=== PATIENT | female | born 1960 | race Caucasian/White ===

== ENCOUNTER → 2022-10-10 11:41 | Outpatient (CLI) | payer OTHER, SELFPAY ==
--- NOTE | ~2022-10-10 | MM_ITS ---
EXAMINATION: MM screening victor manuel BI w haylie HISTORY: Screening TECHNIQUE: Craniocaudal and mediolateral oblique 3-D tomosynthesis images were obtained and synthetic 2-D images were generated. CAD analysis was submitted and interpreted. COMPARISON: 03/13/2012 BREAST PARENCHYMAL COMPOSITION: Breast composed of scattered areas of fibroglandular density FINDINGS: There are new bilateral breast asymmetries medially in both breasts posterior third. No cor responding abnormality is seen on MLO views. There are no suspicious calcifications or skin thickenin g. IMPRESSION: 1. New bilateral breast asymmetries located medially and posteriorly in both breasts. 2. Additional mammographic views and possible breast ultrasound are recommended. BI-RADS Category 0: Incomplete: Needs additional imaging evaluation. Reviewed, dictated and finalized at location A. DIGESTIVE IMPRESSION: 1. New bilateral breast asymmetries located medially and posteriorly in both br easts. 2. Additional mammographic views and possible breast ultrasound are recommended . BI-RADS Category 0: Incomplete: Needs additional imaging evaluation.
== END ==
PROVIDERS: PCP Internal Medicine; Visit Provider Obstetrics & Gynecology Gynecology
DX: Z12.31 Encounter for screening mammogram for malignant neoplasm of breast (principal); R92.8 Other abnormal and inconclusive findings on diagnostic imaging of breast
CPT/HCPCS: 77063; 77067

== ENCOUNTER 2022-11-04 13:44 | Outpatient (CLI) | payer OTHER, SELFPAY ==
--- NOTE | ~2022-11-04 | MMUS_ITS ---
EXAMINATION: MM diagnostic victor manuel BI w haylie, US breast BI limited HISTORY: Follow-up bilateral breast asymmetries TECHNIQUE: Additional 3-D tomosynthesis images of the breasts were performed and synthetic 2-D images were generated. CAD analysis was submitted and interpreted. High resolution limited bilateral breast ultrasound was performed. COMPARISON: Comparison to multiple prior studies sequentially, with oldest reviewed study dated 07/18. BREAST PARENCHYMAL COMPOSITION: Breast composed of scattered areas of fibroglandular density FINDINGS: MAMMOGRAPHIC FINDINGS: There are no suspicious masses, calcifications or architectural distortion in either breast to sugges t malignancy. ULTRASOUND: Limited bilateral breast ultrasound of the medial half of both breasts: Normal heterogeneous echotext ure without focal solid or cystic mass. IMPRESSION: 1. No evidence for malignancy in either breast. 2. Routine yearly screening mammogram and regular clinical breast examination are recommended. BI-RADS Category 1: Negative Reviewed, dictated and finalized at location B. F CONCIERGE IMPRESSION: 1. No evidence for malignancy in either breast. 2. Routine yearly screening mammogram and regular clinical breast examination a re recommended. BI-RADS Category 1: Negative
== END 2022-11-04 13:45 | disposition home or self-care (01) ==
PROVIDERS: PCP Internal Medicine; Visit Provider Internal Medicine
DX: R92.8 Other abnormal and inconclusive findings on diagnostic imaging of breast (principal)
CPT/HCPCS: 76642; 77062; 77066; G0279

== ENCOUNTER 2024-05-05 07:53 | Outpatient (CLI) | payer BC, SELFPAY ==
--- NOTE | ~2024-05-05 | MM_ITS ---
EXAMINATION: MM screening victor manuel BI w haylie HISTORY: Screening TECHNIQUE: Craniocaudal and mediolateral oblique 3-D tomosynthesis images were obtained and synthetic 2-D images were generated. CAD analysis was submitted and interpreted. COMPARISON: Comparison to multiple prior studies sequentially, with oldest reviewed study dated 07/18. BREAST PARENCHYMAL COMPOSITION: Not dense: There are scattered areas of fibroglandular density. FINDINGS: There is no evidence of suspicious mass, calcification, or architectural distortion to sugg est malignancy in either breast. There has been no suspicious interval change. IMPRESSION: 1. No mammographic evidence of malignancy. 2. Recommend routine screening mammography in one year. BI-RADS Category 1: Negative Reviewed, dictated and finalized at location B.
--- NOTE | ~2024-05-05 | DEXA_ITS ---
Bone Density Report Name: EMMANUEL BULLARD Age: 63 Sex: Female Ethnicity: White Date of : 1960 Indication: postmenopausal; screening for osteoporosis; parental hip fracture; history of glucocorticoids; cancer; Referring Provider: CARLOS BEYER Study: Bone densitometry was performed. Exam Date: May 05, 2024 Accession number: [id number] Bone Density: Region BMD T-score Z-score Classification AP Spine(L1-L4) 0.906 -1.3 0.3 Osteopenia Femoral Neck (Left) 0.674 -1.6 -0.2 Osteopenia Total Hip (Left) 0.791 -1.2 -0.1 Osteopenia Femoral Neck (Right) 0.607 -2.2 -0.8 Osteopenia Total Hip (Right) 0.803 -1.1 0.0 Osteopenia Total Hip Mean 0.797 -1.2 -0.1 Osteopenia World Health Organization criteria for BMD impression classify patients as: Normal (T-score at or above -1.0), Osteopenia (T-score between -1.0 and -2.5), or Osteoporosis (T-score at or below -2.5). 10-year Fracture Risk(1): Major Osteoporotic Fracture 29% Hip Fracture 3.0% Reported Risk Factors: [place] (), Neck BMD=0.607, BMI=22.0, parental fracture, glucocorticoids (1) FRAX(R) Version 3.08. Fracture probability calculated for an untreated patient. Fracture probability may be lower if the patient has received treatment. Clinical Information Provided by Patient: Parent has had a hip fracture Has taken Glucocorticoids Has used the following medications: Vitamin D Has the following medical conditions: Cancer Patient maximum height was 65 Menopause Age: 50 Onset of menses at age 14 Number of children 1 Impression: The patient has low bone mass, based on the Right Femoral Neck T-score. The patient has an estimated ten-year risk of hip fracture of 3% and an estimated ten-year risk of major fracture of 29%, based on the WHO FRAX algorithm. The patient has risk factors, including: parental hip fracture, history of glucocorticoid therapy. Discussion: BONE DENSITY IS LOW AT ONE OR MORE SKELETAL SITES. THE PATIENT'S BMD AND CLINICAL RISK FACTORS CONTRIBUTE TO THIS PATIENT'S HIGH RISK OF FRACTURE. This patient's lowest T-score is low at one or more skeletal sites. It meets the World Health Organization's (WHO) criteria for ?low bone mass? (T-score between -1.0 and -2.5). The patient's 10-year risk of hip fracture and 10 year risk of a major osteoporotic fracture as calculated by FRAX exceeds the threshold where pharmacological therapy is recommended by the National Osteoporosis Foundation (NOF). However, all treatment decisions require clinical judgment and consideration of individual patient factors, including patient preferences, comorbidities, previous drug use, risk factors not captured in the FRAX model (e.g., frailty, falls, vitamin D deficiency, increased bone turnover, interval significant decline in bone densi
== END 2024-05-05 07:54 | disposition home or self-care (01) ==
PROVIDERS: PCP Internal Medicine; Visit Provider Obstetrics & Gynecology Gynecology
DX: Z12.31 Encounter for screening mammogram for malignant neoplasm of breast (principal); Z78.0 Asymptomatic menopausal state; M85.88 Other specified disorders of bone density and structure, other site; M85.852 Other specified disorders of bone density and structure, left thigh; M85.851 Other specified disorders of bone density and structure, right thigh
CPT/HCPCS: 77063; 77067; 77080

== ENCOUNTER 2025-06-09 10:04 | Outpatient (CLI) | payer BC, SELFPAY ==
--- NOTE | ~2025-06-09 | MM_ITS ---
EXAMINATION: MM screening victor manuel BI w haylie HISTORY: Screening TECHNIQUE: Craniocaudal and mediolateral oblique 3-D tomosynthesis images were obtained and synthetic 2-D images were generated. CAD analysis was submitted and interpreted. COMPARISON: Comparison to multiple prior studies sequentially, with oldest reviewed study dated 09/24. BREAST PARENCHYMAL COMPOSITION: Not Dense: The breasts are almost entirely fatty. FINDINGS: There is a new mass in the right breast, posterior third at approximately 9:00 position. Th e left breast is stable without evidence for malignancy. IMPRESSION: 1. New right breast mass at 9:00, posterior third. 2. Additional mammographic views and possible breast ultrasound are recommended. BI-RADS Category 0: Incomplete: Needs additional imaging evaluation. Reviewed, dictated and finalized at location B. IMPRESSION: 1. New right breast mass at 9:00, posterior third. 2. Additional mammographic views and possible breast ultrasound are recommended . BI-RADS Category 0: Incomplete: Needs additional imaging evaluation.
--- OUTSIDE RECORDS SUMMARY | 2025-06-09 10:10 | XMS_ITS | Continuity of Care Document ---
Author Organization [facility] Address [address] [place] [address] [place] [address] Phone Care Team Providers Care Simplex Operator Name Role Phone Jerrod Blake MD, FACS Unavailable Unavailab le Allergies, Adverse Reactions, Alerts Substance Reaction Status Criticality codeine Active No Information POTASSIUM CLAVULANATE Active No Inf ormation AMOXICILLIN TRIHYDRATE Active No In formation Procedures Procedure Date Office/outpatient Visit, [facility] Advance Directives Directive Yes / No Effective Date File Name Resuscitation Not Answered N/A N/A Life Support Not Answered N/A N/A Intubation Not Answered N/A N/A Antibiotics Not Answered N/A N/A IV Fluid Support Not Answered N/A N/A Tube Feed Not Answered N/A N/A Other Directive N/A N/A WARNING:The information contained in this section is historical and is provided for information only and does not constitute a legal document or any assurance that the information is still accurate. Please verify the information with the crooks of the legal document before using it for clinical purposes. Encounters Encounter Description Practice Location Reason(s) For Visit Diagnoses Date Provider Providers Copied on Encounter Office/outpa tient Visit, [facility], [id number] [place] [address] [address], [place], [place], [id number], [place] tel:[phone] JOSS CASPER Professional [facility] [address], [address], [place], [place], [id number], [place]. tel:[phone] Referring Provider: Lydia Guzman, [facility] [address], [address]. tel:[phone] Family History Family Member Type Diagnosis Age At Onset Father Problem (finding) diabetes alba mariee in first degree relative Father Problem (finding) glaucoma Payers Payer name Insurance type Covered constitution party ID [place] turpin(s) [place] [id number] Social History Type Description Quantity Date Captured Comments Alcohol Use Details No Caffeine Use Details No Tobacco Use Status No Information Smoking Status No Information Sex Female Chief Complaint And Reason For Visit No Information Reason For Referral Reason For Referral No Information History Of Present Illness Encounter Date Complaint History Of Prese nt Illness No Information Functional Status Date Functional Assessmen t No Information Instructions Date Instruction Additional Infor jeferson - PRN Related to [facility] CON[facility], OS - 1mm LLL - vision not affected - will continue to monitor - Discussed dx in detail. Sx option removing scar tissue, Steroid injection, or letting it resolve on its own. Pt elects to wait for sx. Gave pt sample of lotemax to use after warm compress and massage. Letter dictated to Dr. Rodriguez. Pt to return if granuloma enlarges. Related to [facility] Assessments Type Assessment Date No Information Patient Care Teams Name Effective Dates (start - stop) Status Members No Information
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
--- OUTSIDE RECORDS SUMMARY | 2025-06-09 10:10 | XMS_ITS | Referral Summary ---
Author Organization [facility] Address [address] [place] [address] Care Team Providers Care Retail Aide Name Role Phone Bal Christopher MD Primary Care Provider Encounters Date Type Department Care Team Description 06/07/2025 11:00 AM CDT Office Visit [address] [place] [address] Sanjuana Linda NP Basal cell carcinoma (BCC) of forehead (Primary Dx) 04/28/2025 Results Follow-Up [facility] Primary Care at [address] [place] [address] Bal Christopher MD Lipid panel, Comprehensive metabolic panel, eGFR 04/28/2025 10:35 AM CDT Lab [facility] [address] [place] [address] Examination 04/15/2025 Orders Only [facility] Primary Care at [address] [place] [address] Bal Christopher MD Examination (Primary Dx) 04/14/2025 2:30 PM CDT Office Visit [facility] Primary Care at [address] [place] [address] Bal Christopher MD Annual physical exam (Primary Dx); BMI 23.0-23.9, adult; Celiac disease from Last 3 Months Allergies Active Allergy Reactions Criticality Noted Date [...] 10/15/2019 Assessment & Plan (12/08/2018 3:49 PM RADIATOR TESTER): Avoid water to right ear Avoid very acidic or spicy foods and fluids for the next few days Increase caffeine free and soda free fluid daily For prevention, water-pik or warm salt water gargles after meals and before bedtime Right ear pain 12/08/2018 10/15/2019 Assessment & Plan (12/08/2018 3:50 PM RADIATOR TESTER): Avoid water to right ear Tonsillolith 12/04/2018 10/15/2019 Assessment & Plan (12/08/2018 3:50 PM RADIATOR TESTER): For prevention, water-pik or warm salt water gargles after meals and before bedtime Assessment & Plan (12/04/2018 12:08 PM RADIATOR TESTER): Called over to ENTs office, and they [...] back here in the office as scheduled. Immunizations Immunization Administration Dates Next Due Influenza, Split 07/31/2012 Influenza, Unspecified 04/14/2025(Deferr ed: Patient Refused),02/20/2024(Deferred: Patient Refused),04/04/2023(Deferred: Patient Refused),08/24/2021(Deferred: Patient Refused),08/24/2020(Deferred: Patient Refused),10/15/2019(Deferred: Patient Refused),08/24/2019(Deferred: Patient Refused),08/24/2018(Deferred: Patient Refused) Pfizer SARS-CoV-2 Monovalent Vaccination (12+ Yrs) PURPLE 05/14/2021 Tdap 07/31/2012 Social History Tobacco Use Types Packs/Day Years [...] on file Legal Sex Female 10:47 AM RADIATOR TESTER Gender Identity Female 10/15/2022 12:04 PM RADIATOR TESTER Sexual Orientation Straight 09/05/2024 2: 56 PM CDT Last Filed Vital Signs Vital Sign Reading [...] 04/14/2025 2:15 PM CDT Plan of Treatment Not on file Procedures Procedure Name Priority Date/Time Associated Diagnosis [...] was last reviewed 2021. Testing performed by: [facility], [address] [place] [address]., [address] Blood 04/28/2025 10:3 5 AM CDT 04/28/2025 2:10 PM CDT Bal Christopher MD LAB BLOOD ORDERABLES Fi nal Result HIRA LACKEY ([place]OS[place]) [address] [facility] [place] [address] * (ABNORMAL) Lipid panel (04/28/2025 10:35 AM [...] last revised on 2018. Testing performed by: [facility], [address] [place] [address]., [address] Triglycerides 68 <=149 mg/dL HIRA LACKEY (JOSY) [...] last revised on 2018. Testing performed by: [facility], [address] [place] [address]., [address] HDL 88 >=40 mg/dL HIRA LACKEY ([place]OSY) [...] last revised on 2018. Testing performed by: [facility], [address] [place] [address]., [address] LDL, calculated 113 <=129 mg/dL HIRA LACKEY [...] Stuart et al. CHEO Cardiol. 2020 March 24;5(5):540549. doi: 10.1001/jamacardio.2020.0013 Current Interpretive Data was last revised on 2024. Testing performed by: [address] [address] Non-HDL Cholesterol 125 mg/dL HIRA LACKEY ([place]OSY) [...] last revised on 2018. Testing performed by: [address] [address] Chol/HDL ratio 2 WILLIAM LACKEY ([place]OSY) Comment:Testing performed by : [address] [address] Blood 04/28/2025 10:3 5 AM CDT 04/28/2025 2:02 PM CDT us Bal Christopher MD LAB BLOOD ORDERABLES Fi nal Result HIRA LACKEY ([place]) [address] [facility] [place] [address] * Comprehensive metabolic panel (04/28/2025 10:35 AM CDT) Sodium 138 135 - 145 mmol/L Comment:Testing performed by : [address] [address] Potassium, pl 4.2 3.3 - 4.9 mmol/L HIRA LACKEY ([place]OSY) Comment:Testing performed by : [address] [address] Chloride 103 97 - 110 mmol/L HIRA LACKEY ([place]OSY) Comment:Testing performed by : [facility], [address] [place] [address]., [address] CO2 28 22 - 32 mmol/L [facility] ([place]) Comment:Testing performed by : [address] [address] Anion gap 7 2 - 15 mmol/L [facility] ([place]) Comment:Testing performed by : [address] [address] BUN 19 6 - 25 mg/dL [facility] ([place]) Comment:Testing performed by : [facility], [address] [place] [address], [address] Creatinine 0.76 0.60 - 1.10 mg/dL [facility] ([place]Y) Comment:Testing performed by : [address], [address] Glucose 95 70 - 199 mg/dL CERNER [...] classification and Diagnosis of Diabetes Diabetes Care 2021; 46: S19-S40. Current interpretive data was last revised 2022. Testing performed by: [facility], [address] [place] [address]., [address] Calcium 9.5 8.5 - 10.3 mg/dL [facility] ([place]) Comment:Testing performed by : [address] [address] Bilirubin, total 0.5 0.1 - 1.2 mg/dL [facility] ([place]) Comment:Testing performed by : [address] [address] Protein, pl 7.2 6.5 - 8.5 g/dL [facility] ([place]) Comment:Testing performed by : [address], [address] Albumin 4.5 3.5 - 5.0 g/dL [facility] ([place]) Comment:Testing performed by : [facility], [address] [place] [address]., [address] Alk phos 96 40 - 130 Units/L [facility] ([place]) Comment:Testing performed by : [facility], [address] [place] [address], [address] ALT 13 7 - 45 Units/L [facility] ([place]) Comment:Testing performed by : [facility], [address] [place] [address], [address] AST 31 10 - 45 Units/L [facility] ([place]) Comment:Testing performed by : [facility], [address] [place] [address], [address] Blood 04/28/2025 10:3 5 AM CDT 04/28/2025 2:02 PM CDT Bal Christopher MD LAB BLOOD ORDERABLES Fi nal Result HIRA ZIYAD ([place]) [address] [facility] [place] [address] * Screening Mammogram Bilateral W Jose (05/05/2024) [...] CDT) Stool DNA - Cologuard Negative Negative [employer] ([employer]lection EnergyIA #:[id number]) Comment: NEGATIVE TEST RESULT. A negative Cologuard [...] colonoscopy. (Bernadine Arteaga, N Engl J Med 2014;370(14):9483-0766) The normal value (reference range) for this assay is negative. COLOGUARD RE-SCREENING RECOMMENDATION: Periodic colorectal cancer screening is an important part of preventive healthcare for asymptomatic individuals at average risk for colorectal cancer. Following a negative Cologuard result, the [place] Cancer Society and U.S. Multi-Society Task Force screening guidelines recommend a Cologuard re-screening interval of 3 years. References: [place] [employer] Guideline for Colorectal Cancer Screening: https://www.cancer.org/cancer/fioui-jsfxoo-cedmhb/yyueqyqua-akbcmpjkc-igkvpgk/ac s-rec ommendations.html.; Trevor DK, Dallin MARQUES, Mary UribeK, Colorectal Cancer Screening: Recommendations for Physicians and Patients from the U.S. Multi-Society Task Force on Colorectal Cancer Screening , Am J Gastroenterology 2017; 112:0909-2197. TEST DESCRIPTION: Composite algorithmic analysis of stool [...] (Bernadine Toth al, N Engl J Med 2014;370(14):1503-7712.) Cologuard may produce a false negative or false positive result (no colorectal cancer or precancerous polyp present at colonoscopy follow up). A negative Cologuard test result does not guarantee the absence of CRC or advanced adenoma (pre-cancer). The current Cologuard screening interval is every 3 years. ([place] Cancer Society and U.S. Multi-Society Task Force). Cologuard performance data in a 10,000 patient pivotal study using colonoscopy as the reference method can be accessed at the following location: www.[employer].Silicon Clocks/results. Additional description of the Cologuard test process, warnings and precautions can be found at www.[employer].com. Stool 04/22/2023 7:00 AM CDT 04/23/2023 6:15 PM CDT Bal Christopher MD LAB BODY FLUIDS AND STO OLS ORDERABLES Final Result [facility] (CLIA #:[id number]) [place] [place] [address] * PAP SMEAR WITH HPV (12/08/2022) Generic External Data Provider HEALTH MAINTENANC E Final Result * HEPATITIS C SCREENING (03/14/2017) HEP C Normal Historical Provider HEALTH MAINTENANCE Final Result from Last 3 Months or Most Recently Relevant to Health Maintenance Insurance [facility] Care Teams Retail Aide Relationship Specialty Start Date End Date Bal Christopher MD PCP - General 02/03/15
== END 2025-06-09 10:05 | disposition home or self-care (01) ==
PROVIDERS: PCP Internal Medicine; Visit Provider Obstetrics & Gynecology Gynecology
DX: Z12.31 Encounter for screening mammogram for malignant neoplasm of breast (principal); R92.8 Other abnormal and inconclusive findings on diagnostic imaging of breast
CPT/HCPCS: 77063; 77067

== ENCOUNTER 2025-06-29 10:50 | Outpatient (CLI) | payer BC, SELFPAY ==
--- NOTE | ~2025-06-29 | MMUS_ITS ---
EXAMINATION: MM diagnostic victor manuel RT w haylie, US breast RT limited INDICATION: 51-year old female; BI-RADS 0, callback to evaluate right breast mass. COMPARISON: 06/09/2025. TECHNIQUE: Digital breast tomosynthesis True lateral and spot compression CC and MLO views of the RIG HT breast were obtained with computer-aided detection to assist in interpretation of the study. FINDINGS: The breasts are almost entirely fatty. The mass of concern in the outer central 9:00 right breast persists as a circumscribed mass. Ultrasou nd was performed for further evaluation. RIGHT BREAST ULTRASOUND FINDINGS: Targeted evaluation of the area of concern was completed. There is a 2.3 cm circumscribed hypoechoic mass at 9:00 location 4 cm from the nipple in the RIGHT breast that correlate to the area of Mammogra phic finding. No suspicious features identified. IMPRESSION: Probable Benign RIGHT breast mass. Short-term follow-up recommended. RECOMMENDATION: 6 month follow-up diagnostic RIGHT mammogram and RIGHT breast ultrasound due in December 2025 BI-RADS 3, PROBABLY BENIGN Reviewed, dictated and finalized at location B. IMPRESSION: Probable Benign RIGHT breast mass. Short-term follow-up recommended. RECOMMENDATION: 6 month follow-up diagnostic RIGHT mammogram and RIGHT breast ultrasound due in December 2025 BI-RADS 3, PROBABLY BENIGN
--- OUTSIDE RECORDS SUMMARY | 2025-06-29 11:30 | XMS_ITS | Clinical Summary ---
Author Organization [facility] Address [address] [place] [address] Care Team Providers Care Health Clinician Name Role Phone Bal Christopher MD Primary [...] 10/15/2019 Assessment & Plan (12/08/2018 3:49 PM INSULATION WORKER FURNACE INSTALLER): Avoid water to right ear Avoid very acidic or spicy foods and fluids for the next few days Increase caffeine free and soda free fluid daily For prevention, water-pik or warm salt water gargles after meals and before bedtime Right ear pain 12/08/2018 10/15/2019 Assessment & Plan (12/08/2018 3:50 PM INSULATION WORKER FURNACE INSTALLER): Avoid water to right ear Tonsillolith 12/04/2018 10/15/2019 Assessment & Plan (12/08/2018 3:50 PM INSULATION WORKER FURNACE INSTALLER): For prevention, water-pik or warm salt water gargles after meals and before bedtime Assessment & Plan (12/04/2018 12:08 PM INSULATION WORKER FURNACE INSTALLER): Called over to ENTs office, and they [...] Description 06/07/2025 11:00 AM CDT Office Visit [facility] [address] [place] [address] [address] [place] [address] Sanjuana Linda NP Basal cell carcinoma (BCC) of forehead (Primary Dx) 04/28/2025 10:35 AM CDT Lab [facility] [address] [place] [address] Examination 04/28/2025 Results Follow-Up [facility] Primary Care at [address] [place] [address] Bal Christopher MD Lipid panel, Comprehensive metabolic panel, eGFR 04/15/2025 Orders Only [facility] Primary Care at [address] [place] [address] Bal Christopher MD Examination (Primary Dx) 04/14/2025 2:30 PM CDT Office Visit [facility] Primary Care at [address] [place] [phone] Bal Christopher MD Annual physical exam (Primary [...] Medical History Date Comments Hx Other Medical PRESS PIPE INSPECTOR Celiac disease Celiac disease Family History Medical [...] on file Legal Sex Female 10:47 AM INSULATION WORKER FURNACE INSTALLER Gender Identity Female 10/15/2022 12:04 PM INSULATION WORKER FURNACE INSTALLER Sexual Orientation Straight 09/05/2024 2: 56 PM [...] Vaccine ( - season) 2024 06/04/2021, 05/14/2021 Influenza Vaccine (#1) 2025 07/31/2012 Depression Screening 04/14/2026 04/14/2025, 05/25/2024, 05/06/2024, Additional history exists Regular Well Visit/Exam 18-64 04/14/2026 04/14/2025, 04/12/2024, 04/04/2023, Additional history exists Colon Cancer Screening-DNA Stool 04/22/2026 04/22/2023, 12/07/2019, 12/05/2019, Additional history exists Osteoporosis Screening-Bone Density Scan 05/05/2026 05/05/2024, 03/13/2012 Breast Cancer Screening-Mammogram 06/09/2026 06/09/2025, 05/05/2024, 11/04/2022, Additional history exists Hepatitis C Screening Completed 03/14/2017 Pneumococcal vaccine <65 Aged Out No longer eligible based on patient's age to complete this topic Procedures Procedure Name Priority Date/Time Associated Diagnosis Comments SCREENING MAMMOGRAM BILATERAL W JOSE Schedule Routine, Read Routine (OP Routine) 06/09/2025 EGFR Routine 04/28/2025 10:35 AM CDT Examination [...] Recently Relevant to Health Maintenance Results * Screening Mammogram Bilateral W Jose (06/09/2025) Anatomical Region Laterality Modality Breast Bilateral Mammography us Generic External Data Provider IMG MAMMO PROCEDU RES Final Result * eGFR (04/28/2025 10:35 AM CDT) eGFR [...] was last reviewed 2021. Testing performed by: [address] [address] Blood 04/28/2025 10:3 5 AM CDT 04/28/2025 2:10 PM CDT us Bal Christopher MD LAB BLOOD ORDERABLES Fi nal Result [facility]) 7 [facility] Department [place] [address] * (ABNORMAL) Lipid panel (04/28/2025 10:35 AM [...] last revised on 2018. Testing performed by: [address] [address] Triglycerides 68 <=149 mg/dL HIRA LACKEY ([place]) [...] last revised on 2018. Testing performed by: [facility], [address] [place] [address]., [address] HDL 88 >=40 mg/dL HIRA LACKEY ([place]) [...] last revised on 2018. Testing performed by: [facility], [address] [place] [address]., [address] LDL, calculated 113 <=129 mg/dL HIRA LACKYE ([place]OSY) Comment: Interpretive Data Ages < or = 19 years Acceptable: <110 mg/dL Borderline high: 110-129 mg/dL High: >or= 130 mg/dL Ages > or = 20 years Optimal: <100 mg/dL Near optimal: 100-129 mg/dL Borderline high: 130-159 mg/dL High: >160 mg/dL Calculated using the Cisneros LDL-C estimating equation. This equation was implemented on 2024. Prior to this date LDL-C was estimated using the Friedewald equation. Literature References: 1. Expert Panel on Integrated Guidelines for Cardiovascular Health and Risk Reduction in Children and Adolescents. Pediatrics 2011;128:S213 2. NCEP Expert Panel. Circulation 2004;110:227 3. Cisneros M et al. CHEO Cardiol. 2020 March 24;5(5):540-548. doi: 10.1001/jamacardio.2020.0013 Current Interpretive Data was last revised on 2024. Testing performed by: [address] [address] Non-HDL Cholesterol 125 mg/dL HIRA LACKEY ([place]) [...] last revised on 2018. Testing performed by: [address] [address] Chol/HDL ratio 2 WILLIAM LACKEY ([place]) Comment:Testing performed by : [address] [address] Blood 04/28/2025 10:3 5 AM CDT 04/28/2025 2:02 PM CDT Bal Christopher MD LAB BLOOD ORDERABLES Fi nal Result HIRA LACKEY ([place]) 1 [facility] Department [place] [address] * Comprehensive metabolic panel (04/28/2025 10:35 AM CDT) [facility] Signature Sodium 138 135 - 145 mmol/L Comment:Testing performed by : [address] [address] Potassium, pl 4.2 3.3 - 4.9 mmol/L HIRA LACKEY ([place]) Comment:Testing performed by : [address], [place]., [address] Chloride 103 97 - 110 mmol/L [facility] ([place]) Comment:Testing performed by : [facility], [address] [place] [address]., [address] CO2 28 22 - 32 mmol/L [facility] ([place]) Comment:Testing performed by : [facility], [address] [place] [address], [address] Anion gap 7 2 - 15 mmol/L [facility] ([place]) Comment:Testing performed by : [facility], [address] [place] [address], [address] BUN 19 6 - 25 mg/dL [facility] ([place]) Comment:Testing performed by : [address], [address] Creatinine 0.76 0.60 - 1.10 mg/dL [facility] ([place]) Comment:Testing performed by : [address], [address] Glucose 95 70 - 199 mg/dL CERNER [...] was last revised 2022. Testing performed by: [facility], [address] [place] [address]., [address] Calcium 9.5 8.5 - 10.3 mg/dL [facility] ([place]) Comment:Testing performed by : [address] [address] Bilirubin, total 0.5 0.1 - 1.2 mg/dL [facility] ([place]) Comment:Testing performed by : [address], [address] Protein, pl 7.2 6.5 - 8.5 g/dL [facility] ([place]) Comment:Testing performed by : [facility], [address] [place] [address]., [address] Albumin 4.5 3.5 - 5.0 g/dL [facility] ([place]) Comment:Testing performed by : [facility], [address] [place] [address]., [address] Alk phos 96 40 - 130 Units/L [facility] ([place]) Comment:Testing performed by : [facility], [address] [place] [address], [address] ALT 13 7 - 45 Units/L [facility] ([place]) Comment:Testing performed by : [facility], [address] [place] [address], [address] AST 31 10 - 45 Units/L [facility] ([place]) Comment:Testing performed by : [address], [address] Blood 04/28/2025 10:3 5 AM CDT 04/28/2025 2:02 PM CDT us Bal Christopher MD LAB BLOOD ORDERABLES Fi nal Result HIRA LACKEY ([place]) 1 [facility] [place] [address] * Dexa Axial Skeleton Bone Density 1 or 2 Site (05/05/2024) Anatomical Region Laterality Modality Body N/A Radiographic Vickie ging us Generic External Data Provider IMG DXA PROCEDURE S Final Result * Stool DNA - Cologuard (04/22/2023 7:00 AM CDT) Stool DNA - Cologuard Negative Negative [employer] (CLIA #:[id number]) Comment: NEGATIVE TEST RESULT. A negative Cologuard [...] (Bernadine Toth al, N Engl J Med 2014;370(14):3286-4827) The normal value (reference range) for this assay is negative. COLOGUARD RE-SCREENING RECOMMENDATION: Periodic colorectal cancer screening is an important part of preventive healthcare for asymptomatic individuals at average risk for colorectal cancer. Following a negative Cologuard result, the [place] Cancer Society and U.S. Multi-Society Task Force screening guidelines recommend a Cologuard re-screening interval of 3 years. References: [place] Cancer [employer] Guideline for Colorectal Cancer Screening: https://www.cancer.org/cancer/dwxuc-vxpovc-ozstjt/twlgoxbyx-seijxskui-ugyfuvm/ac s-rec ommendations.html.; Trevor DK, Dallin MARQUES, Mary UribeK, Colorectal Cancer Screening: Recommendations for Physicians and Patients from the U.S. Multi-Society Task Force on Colorectal Cancer Screening , Am J Gastroenterology 2017; 112:6282-5720. TEST DESCRIPTION: Composite algorithmic analysis of stool [...] colonoscopy. (Bernadine Arteaga, N Engl J Med 2014;370(14):6835-6552.) Cologuard may produce a false negative or false positive result (no colorectal cancer or precancerous polyp present at colonoscopy follow up). A negative Cologuard test result does not guarantee the absence of CRC or advanced adenoma (pre-cancer). The current Cologuard screening interval is every 3 years. ([place] Cancer Society and U.S. Multi-Society Task Force). Cologuard performance data in a 10,000 patient pivotal study using colonoscopy as the reference method can be accessed at the following location: www.[employer]/results. Additional description of the Cologuard test process, warnings and precautions can be found at www.cologuard.com. Stool 04/22/2023 7:00 AM CDT 04/23/2023 6:15 PM CDT Bal Christopher MD LAB BODY FLUIDS AND STO OLS ORDERABLES Final Result [facility] (CLIA #:[id number]) [address] [place] [address] * PAP SMEAR WITH HPV (12/08/2022) Generic External Data Provider [facility] MAINTENANC E Final Result * HEPATITIS C SCREENING (03/14/2017) HEP C Normal Historical Provider HEALTH MAINTENANCE Final Result from Last 3 Months or Most Recently Relevant to Health Maintenance Insurance [facility] Care Teams Health Clinician Relationship Specialty Start Date End Date Bal Christopher MD PCP - General 02/03/15
== END 2025-06-29 10:51 | disposition home or self-care (01) ==
LOC: ANHIMG 10:51
PROVIDERS: PCP Internal Medicine; Visit Provider Obstetrics & Gynecology Gynecology
DX: R92.8 Other abnormal and inconclusive findings on diagnostic imaging of breast (principal)
CPT/HCPCS: 76642; 77061; 77065; G0279